=== PATIENT | male | born 1995 | race Hispanic/Latino ===

== ENCOUNTER 2018-08-23 07:45 | Emergency (ER) | payer SELFPAY ==
[2018-08-23 08:03] VITALS: BMI 27.6
[2018-08-23 08:04] VITALS: O2SAT 98
--- NOTE | 2018-08-23 08:21 | ED PDOC ---
HPI: Skin/Bite Injury Time Seen by Provider: 08/23/18 07:50 Chief Complaint (Nursing): Abnormal Skin Integrity Chief Complaint (Provider): Rash History Per: Patient History/Exam Limitations: no limitations Onset/Duration Of Symptoms: Days (x2 months) Current Symptoms Are (Timing): Still Present Additional Complaint(s): 23 year old male, with no past medical history, presenting for evaluation of erythematous rash involving face, neck, chest, back, arms, torso x2 months. Patient states he was seen by a sales contractor and treated with anti-histamines and steroids with only temporary relief. Patient continues to have mild itching associated with rash. Denies shortness of breath, throat tightness, or fever. Past Medical History Reviewed: Historical Data, Nursing Documentation, Vital Signs Vital Signs: Last Vital Signs Temp 98.2 F 08/23/18 08:25 Pulse 58 L 08/23/18 08:25 Resp 16 08/23/18 08:25 BP 123/73 08/23/18 08:25 Pulse Ox 98 08/23/18 08:47 - Medical History PMH: No Chronic Diseases - Surgical History Surgical History: No Surg Hx - Family History Family History: States: Unknown Family Hx - Allergies Allergies/Adverse Reactions: Allergies Allergy/AdvReac Type Severity Reaction Status Date / Time No Known Allergies Allergy Verified 08/23/18 08:04 Review of Systems ROS Statement: Except As Marked, All Systems Reviewed And Found Negative Constitutional: Negative for: Fever ENT: Negative for: Throat Swelling Respiratory: Negative for: Shortness of Breath Skin: Positive for: Rash Physical Exam - Reviewed Nursing Documentation Reviewed: Yes Vital Signs Reviewed: Yes - Physical Exam Skin: Positive for: Rash (multiple erythematous slightly raised annular lesions on face, neck, chest, arms, and torso. No oral lesions. Palms spared.) - ECG O2 Sat by Pulse Oximetry: 98 (RA) Pulse Ox Interpretation: Normal Medical Decision Making Medical Decision Making: Scribe Attestation: Documented by Gibson King, acting as a scribe for Jaime Diane MD. Provider Scribe Attestation: All medical record entries made by the Scribe were at my direction and personally dictated by me. I have reviewed the chart and agree that the record accurately reflects my personal performance of the history, physical exam, medical decision making, and the department course for this patient. I have also personally directed, reviewed, and agree with the discharge instructions and disposition. Disposition - Clinical Impression Clinical Impression: Dermatitis - Patient ED Disposition Is Patient to be Admitted: No Counseled Patient/Family Regarding: Diagnosis, Need For Followup - Disposition Referrals: Mukul Fajardo MD [Staff Provider] - Disposition: Routine/Home Disposition Time: 08:47 Condition: FAIR Instructions: Chronic Hives Forms: [facility] ([place])
[2018-08-23 08:26] VITALS: BP 123/73; PULSE 58; RESP 16; TEMP 98.2
== END 2018-08-23 08:26 | disposition home or self-care (01) ==
LOC: H.ER 07:45
DX: L30.9 Dermatitis, unspecified (principal)